=== PATIENT | female | born 1990 | race Caucasian/White ===

== ENCOUNTER 2016-05-20 22:06 | Inpatient (IN) | payer OTHER ==
[~2016-05-20] VITALS: Ht 154.9 cm; Wt 61.4 kg
[~2016-05-20 22:06] MED LIST: METHADONE10 MG PO; PRENATAL TABLE1 EACH PO; PROMETHAZINE HC25 M1 PO; ZOLOFT50 MG PO
[2016-05-20 22:19] VITALS: BP 122/65
[2016-05-20] MEDS ORDERED: METHADONE10 MG PO (22:28)
[2016-05-20] MEDS ORDERED: ZOLOFT50 MG PO (22:29)
[2016-05-20 22:38] LABS: EOSINOPHIL (%) 0.7 % (0-5); EOSINOPHIL COUNT 0.1 K/uL (0-0.3); HEMATOCRIT 38.9 % (36.0-46.0); IMMATURE GRANULOCYTE (%) 0.2 % (0.0-0.7); IMMATURE GRANULOCYTE COUNT 0.4 K/uL; LYMPHOCYTE COUNT 3.2 K/uL (1.0-2.8); MCH 30.9 PG (29.0-34.0); MCHC 36.2 G/DL (30.0-36.0); MCV 85.3 FL (83-99); MEAN PLAT.VOLUME 11.3 uM^3 (9.5-12.4); MONOCYTE (%) 5.9 % (3-12); MONOCYTE COUNT 1.1 K/uL (0-0.8); NEUTROPHIL (%) 76.3 % (45-76); NEUTROPHIL COUNT 14.5 K/uL (1.8-6.4); PLATELET COUNT 244 K/uL (156-360); RBC DIS.WIDTH-CV 13.1 % (11.8-14.6); RBC DIS.WIDTH-SD 40.2 % (39-53); RED BLOOD COUNT 4.56 M/uL (3.80-5.20)
[2016-05-20 23:22] VITALS: BP 115/64
[2016-05-20 23:34] VITALS: BP 109/58
[2016-05-20 23:40] VITALS: BP 108/62
[2016-05-20 23:57] VITALS: BP 106/65
[2016-05-21 00:12] VITALS: BP 106/63
[2016-05-21 00:27] VITALS: BP 108/70
[2016-05-21 07:29] VITALS: BP 116/76
[2016-05-21 08:46] LABS: EOSINOPHIL (%) 0.2 % (0-5); HEMATOCRIT 39.7 % (36.0-46.0); IMMATURE GRANULOCYTE (%) 0.3 % (0.0-0.7); IMMATURE GRANULOCYTE COUNT 0.1 K/uL; LYMPHOCYTE COUNT 3.5 K/uL (1.0-2.8); MCH 30.8 PG (29.0-34.0); MCHC 35.3 G/DL (30.0-36.0); MCV 87.3 FL (83-99); MEAN PLAT.VOLUME 12.1 uM^3 (9.5-12.4); MONOCYTE (%) 6.1 % (3-12); MONOCYTE COUNT 1.2 K/uL (0-0.8); NEUTROPHIL (%) 74.7 % (45-76); NEUTROPHIL COUNT 14.1 K/uL (1.8-6.4); PLATELET COUNT 225 K/uL (156-360); RBC DIS.WIDTH-CV 13.3 % (11.8-14.6); RBC DIS.WIDTH-SD 42.1 % (39-53); RED BLOOD COUNT 4.55 M/uL (3.80-5.20); WHITE BLOOD COUNT 18.8 K/uL (4.1-10.2)
[2016-05-21 17:39] VITALS: BP 126/84
[2016-05-21 23:53] VITALS: BP 126/82
[2016-05-22 08:19] VITALS: BP 94/55
== END 2016-05-22 17:55 | disposition home or self-care (01) | DRG 775 ==
LOC: LDRP-OP 22:06 → 2WEST 22:07 → LDRP-OP 07-17 21:59
PROVIDERS: Advanced Practice Midwife
DX: O60.14X0 Preterm labor third trimester with preterm delivery third trimester, not applicable or unspecified (principal); O99.324 Drug use complicating childbirth; F11.90 Opioid use, unspecified, uncomplicated; O99.344 Other mental disorders complicating childbirth; F32.9 Major depressive disorder, single episode, unspecified; O99.334 Smoking (tobacco) complicating childbirth; F17.210 Nicotine dependence, cigarettes, uncomplicated; Z3A.35 35 weeks gestation of pregnancy; Z37.0 Single live birth
CPT/HCPCS: 81003; 85025; J2540; J7120